=== PATIENT | female | born 1965 | race Caucasian/White ===

== ENCOUNTER 2020-11-19 23:05 | Emergency (ER) | payer MEDICAID ==
[~2020-11-19] VITALS: Ht 165.1 cm; Wt 76.2 kg
[2020-11-19 23:32] VITALS: BP 144/96
--- NOTE | 2020-11-20 00:34 | NUR ---
PT TAKEN TO BED 7
[2020-11-20 00:48] VITALS: BP 144/96
--- NOTE | 2020-11-20 00:48 | NUR ---
55 YO F BIB SELF WITH C/C OF ABD PAIN 8/ X5DAYS. PT STATES SHE FEELS LIKE HER STOMACH CRAMPS. +DIARRHEA -BLOOD. -N/V. PT STATED SHE HAD HER COVID VACCINE ON MONDAY AND HAS FELT SICK SINCE THEN. PT STATED SHE HAS BURNING ON URINATION. ABD IS SOFT AND FLAT, BOWEL SOUNDS ACTIVE X4. PROVIDED PT WITH WARM BLANKET. ALL NEEDS MET AT THIS TIME. DENIES HX AND RX ALLGER: ANIMAL DANDER
--- NOTE | 2020-11-20 01:17 | NUR ---
Dr. Saunders examining patient.
[2020-11-20] MEDS ORDERED: PHEN-1877 PO (01:35)
[2020-11-20] MEDS ORDERED: CIPR500T4 PO (01:35)
[2020-11-20] MEDS ORDERED: ONDA8TAB87 PO (01:35)
[2020-11-20] MEDS ORDERED: IBUP-2213 PO (01:35)
--- NOTE | 2020-11-20 01:48 | NUR ---
Patient discharged with v/s stable. Written and verbal after care instructions given and explained. Patient alert, oriented and verbalized understanding of instructions. Ambulatory with steady gait. All questions addressed prior to discharge. ID band removed. Patient advised to follow up with PMD. Rx of CIPRO, MOTRIN, ZOFRAN AND PYRIDIUM given. Patient educated on indication of medication including possible reaction and side effects. Opportunity to ask questions provided and answered.
== END 2020-11-20 01:48 | disposition home or self-care (01) ==
LOC: MED 23:05
DX: R10.84 Generalized abdominal pain (principal); N39.0 Urinary tract infection, site not specified; R11.0 Nausea; Z98.890 Other specified postprocedural states; Z88.8 Allergy status to other drugs, medicaments and biological substances
CPT/HCPCS: 81002; 81025; 99283

== ENCOUNTER 2021-06-26 14:48 | Emergency (ER) | payer MEDICAID ==
[~2021-06-26] VITALS: Ht 165.1 cm; Wt 74.8 kg
[~2021-06-26 14:48] MED LIST: CIPR500T4 PO; IBUP-2213 PO; ONDA8TAB87 PO; PHEN-1877 PO
[2021-06-26 14:50] VITALS: BP 125/61
--- NOTE | 2021-06-26 14:57 | NUR ---
PT AMBULATED TO ER BED 7 WITH A STEADY GAIT.
--- NOTE | 2021-06-26 15:24 | NUR ---
STAPLER MACHINE AT PT BEDSIDE.
--- NOTE | 2021-06-26 15:27 | NUR ---
X-RAY AT BEDSIDE
--- NOTE | 2021-06-26 15:54 | NUR ---
PT UNABLE TO PROVIDE UA SAMPLE AT THIS TIME PROVIDED WATER. WILL REASSESS, MADE AWARE.
--- NOTE | 2021-06-26 15:55 | NUR ---
PATIENT REFUSED COVID MAURY TEST. PATIENT EXPLAINED RISKS AND BENEFITS. PATIENT STILL REFUSED. MADE AWARE.
--- NOTE | 2021-06-26 15:56 | NUR ---
LABS DRAWN ORDERED AND WALKED TO LABORATORY
[2021-06-26 16:27] LABS: BASOPHILS # (AUTO) 0.1 K/uL (0.00-0.22); BASOPHILS % (AUTO) 1.2 % (0.0-2.0); EOSINOPHILS # (AUTO) 0.3 K/uL (0-0.4); HEMATOCRIT 43.8 % (36-48); HEMOGLOBIN 14.6 g/dL (12.0-16.0); LYMPHOCYTES # (AUTO) 2.2 K/uL (2.5-16.5); LYMPHOCYTES % (AUTO) 35.2 % (20.5-51.1); MEAN CORPUSCULAR HEMOGLOBIN 29 pg (27-31); MEAN CORPUSCULAR HGB CONC 33 g/dL (33-37); MEAN CORPUSCULAR VOLUME 86.4 fL (80-94); MONOCYTES # (AUTO) 0.4 K/uL (0.8-1.0); MONOCYTES % (AUTO) 6.8 % (1.7-9.3); NEUTROPHILS # (AUTO) 3.3 K/uL (1.8-7.7); NEUTROPHILS % (AUTO) 52.8 % (42.2-75.2); PLATELET COUNT (AUTO) 269 K/uL (140-450); RED BLOOD CELL COUNT(AUTO) 5.07 MIL/uL (4.20-5.40); RED CELL DISTRIBUTION WIDTH 14.2 % (11.6-13.7); WHITE BLOOD COUNT (AUTO) 6.3 K/uL (4.8-10.8)
[2021-06-26 16:32] LABS: ALBUMIN 3.6 g/dL (3.4-5.0); ANION GAP 9.9 (8-16); CARBON DIOXIDE 29.1 mmol/L (21-32); CREATININE 1.4 mg/dL (0.6-1.3); TOTAL BILIRUBIN 0.4 mg/dL (0.0-1.0)
[2021-06-26] MEDS ORDERED: NACL 0.9% 1,000 ML IV ONE (16:40)
--- NOTE | 2021-06-26 16:56 | NUR ---
OBTAINED CONSENT FOR CT ANGIO, PLACED IN PT CHART.
--- NOTE | 2021-06-26 17:18 | NUR ---
PATIENT IS BEING TAKEN TO GET CT SCAN BY VOIP TECHNICIAN
--- NOTE | 2021-06-26 17:34 | NUR ---
PT RETURNED TO BED [address] [facility]
[2021-06-26] MEDS ORDERED: ATOR10TA PO (17:54)
[2021-06-26] MEDS ORDERED: CIPR500T4 PO (17:54)
[2021-06-26] MEDS ORDERED: NITROGLYCERIN 0.4 MG TAB SL ONE ×3 (18:45→20:01)
[2021-06-26] MEDS ORDERED: ASPIRIN 325 MG TAB PO ONE (18:45)
--- NOTE | 2021-06-26 18:59 | NUR ---
CAROLINE NOVAK WALKED TO LAB.
--- NOTE | 2021-06-26 19:39 | NUR ---
GAVE REPORT TO ADAM CAMPOS. TRANSFER OF CARE AT THIS TIME.
--- NOTE | 2021-06-26 22:23 | NUR ---
CALLED [facility] TO GIVE REPORT. PER EQUIPMENT VALIDATION SPECIALIST, JERRY, BECAUSE PT IS COVID POSITIVE, ASSIGNED ROOM CAN NOT BE GIVEN. JERRY TO CALL BACK FOR NEW ROOM. DIGITAL PRODUCT MANAGER, JOHN MADE AWARE.
--- NOTE | 2021-06-26 22:24 | NUR ---
[facility] TRANSPORT AT BEDSIDE
[2021-06-26 22:40] VITALS: BP 133/94
--- NOTE | 2021-06-26 22:42 | NUR ---
Patient to be transferred to [facility] ROOM 318. Is being transferred due to CHEST PAIN. Receiving facility has accepting physician and available space. ER physician has signed transfer form. Patient or responsible democrat has agreed to transfer and signed form. Patient belongings inventoried and will be sent with patient. Copy of nursing notes, lab reports, EKG, Physicians Orders and X-rays to be sent with patient. Report called to JEROME at receiving facility. [facility] ambulance service has been called for transfer.
--- NOTE | 2021-06-26 22:50 | NUR ---
PT TAKEN BY [facility] TRANSPORT TO [facility]
== END 2021-06-26 22:50 | disposition short-term general hospital (02) ==
LOC: MED 14:48
DX: I21.4 Non-ST elevation (NSTEMI) myocardial infarction (principal); Z20.822 Contact with and (suspected) exposure to COVID-19; N17.9 Acute kidney failure, unspecified; E07.9 Disorder of thyroid, unspecified; Z79.899 Other long term (current) drug therapy; Z88.8 Allergy status to other drugs, medicaments and biological substances
CPT/HCPCS: 36415; 71045; 71275; 80053; 81002; 83690; 84484; 85025; 87426; 93005; 96360; 99285; J7030; Q9967